=== PATIENT | male | born 1960 | race Two or more races ===

== ENCOUNTER 2023-05-17 09:04 | Emergency (ER) | payer OTHER ==
[~2023-05-17] VITALS: Ht 180.3 cm; Wt 89.4 kg
[2023-05-17] MEDS ORDERED: CLARITIN10 M1 (09:18)
[2023-05-17 10:31] LABS: HEMATOCRIT 43.2 % (39.0-48.0); HEMOGLOBIN 15.2 g/dL (13-16.00); MEAN CELL VOLUME 94.6 fL (80.0-100.00); MEAN CORPUSCULAR HEMOGLOBIN 33.3 pg (27.00-32.0); MEAN CORPUSCULAR HGB CONC 35.2 g/dl (32.0-36.0); PLATELET COUNT 329 K/uL (150-450); RED BLOOD COUNT 4.56 M/uL (4.00-6.00); RED CELL DISTRIBUTION WIDTH 13.3 % (11.5-14.5)
[2023-05-17] MEDS ORDERED: ZITHROMAX500 MG PO (11:15)
[2023-05-17] MEDS ORDERED: TUSNEL LIQUID178 ML PO (11:15)
[2023-05-17] MEDS ORDERED: ZYRTEC10 M3 PO (11:15)
[2023-05-17 11:20] LABS: ALBUMIN 3.6 gm/dL (3.4-5.0); BILIRUBIN TOTAL 0.49 mg/dL (0.3-1.2); CREATININE SERUM 1.02 mg/dL (0.70-1.30); GFR 74.5; GLOBULINA 3.6 G/DL (2.4-3.5); POTASSIUM 4.26 mEq/L (3.5-5.1); TOTAL PROTEIN 7.2 gm/dL (6.4-8.2)
== END 2023-05-17 11:18 | disposition home or self-care (01) ==
LOC: ER 09:06
PROVIDERS: General Practice
DX: J06.9 Acute upper respiratory infection, unspecified (principal); Z20.822 Contact with and (suspected) exposure to COVID-19